=== PATIENT | female | born 1970 | race Caucasian/White ===

== ENCOUNTER → 2016-10-07 | Outpatient (CLI) | payer BC ==
[~2016-10-07] MED LIST: ALBU8.5H2 IH; EPIN0.3P3 IM; FAMO20TA5 PO; IBUP800T26 PO; PRD20T PO
--- OUTSIDE RECORDS SUMMARY | 2016-10-07 16:10 | XMS REPORT | Continuity of Care Document ---
Author Author [facility] Organization [facility] Address Unknown Phone Unavailable Allergies Active Description Code Type Severity Reaction Onset Reported/Identified Relationship to Patient Clinical Status Yes acetaminophen [id number] Drug Allergy Unknown N/A 05/20/2007 Yes codeine [id number] Drug Allergy Unknown N/A 05/20/2007 Yes hydromorphone [id number] Drug Allergy Unknown N/A 05/20/2007 Yes oxycodone [id number] Drug Allergy Unknown N/A 05/20/2007 Yes benzonatate [id number] Drug Allergy Severe N/A 06/12/2014 Medications Problems Date Dx Coded Attending Type Code Diagnosis Diagnosed By 06/12/2014 KAIR SHI Ot 786.05 SHORTNESS OF BREATH 06/12/2014 KARI SHI Ot 995.0 OTHER ANAPHYLACTIC REACTION 06/12/2014 KARI SHI Ot E945.4 ADV EFF ANTITUSSIVES 11/25/2015 MELITON BERUMEN MD Ot 611.89 OTHER SPECIFIED DISORDERS OF BREAST 11/25/2015 MELITON BERUMEN MD Ot V76.12 OTH SCREEN MAMMO-MALIGN NEOPLASM OF [place] 11/27/2015 MELITON BERUMEN MD Ot 611.89 OTHER SPECIFIED DISORDERS OF BREAST 11/27/2015 MELITON BERUMEN MD, Ot V76.12 OTH SCREEN MAMMO-MALIGN NEOPLASM OF [place] 12/14/2015 MELITON BERUMEN MD Ot 793.80 UNSPEC ABNORMAL MAMMOGRAM 12/14/2015 MELITON BERUMEN MD Ot 486 PNEUMONIA, ORGANISM NOS 02/02/2016 MELITON BERUMEN MD Ot 793.80 UNSPEC ABNORMAL MAMMOGRAM 02/02/2016 MELITON BERUMEN MD Ot 486 PNEUMONIA, ORGANISM NOS 05/07/2016 MELITON BERUMEN MD Ot 793.80 UNSPEC ABNORMAL MAMMOGRAM 05/07/2016 ATA MD, MELITON J Ot 486 PNEUMONIA, ORGANISM NOS 07/15/2016 MELITON BERUMEN MD Ot 793.80 UNSPEC ABNORMAL MAMMOGRAM 07/15/2016 MELITON BERUMEN MD Ot 486 PNEUMONIA, ORGANISM NOS 07/17/2016 MELITON BERUMEN MD Ot R10.84 GENERALIZED ABDOMINAL PAIN 07/17/2016 MELITON BERUMEN MD Ot R31.9 HEMATURIA, UNSPECIFIED 07/30/2016 MELITON BERUMEN MD Ot R10.84 GENERALIZED ABDOMINAL PAIN 07/30/2016 MELITON BERUMEN MD Ot R31.9 HEMATURIA, UNSPECIFIED Procedures Results Encounters ACCT No. Visit Date/Time Discharge Status Pt. Type Provider Facility Loc./Unit Complaint [id number] 06/12/2014 16:38:00 2013 20:31:00 DIS Emergency KARI SHI [facility] ER ALLERGIC REACTION [id number] 06/01/2014 11:50:00 2013 23:59:59 CLS Outpatient MELITON BERUMEN MD [facility] RAD CLINICAL PNEUMONIA [id number] 12/12/2013 07:49:00 2013 23:59:59 CLS Outpatient MELITON BERUMEN MD [facility] RAD ABNORMAL MAMMO [id number] 12/02/2013 07:05:00 2013 23:59:59 CLS Outpatient MELITON BERUMEN MD [facility] RAD [id number] 07/16/2016 08:07:00 ACT Outpatient MELITON BERUMEN MD [facility] RAD LT FLANK PAIN,HEMATURIA
--- NOTE | 2016-10-07 18:49 | Diagnostic Imaging Report ---
Transabdominal and transvaginal pelvic ultrasound. INDICATION: Abnormal uterine bleeding. FINDINGS: The uterus is 8.4 x 4.5 x 5 cm. The endometrial stripe is 1 cm in thickness. The myometrium is slightly heterogeneous with no discrete mass. The right ovary is 1.8 x 2.1 x 2.3 cm with arterial waveforms demonstrated. The left ovary is obscured by bowel gas. The urinary bladder appears unremarkable. IMPRESSION: The left ovary is not seen. The uterus and the right ovary demonstrate no significant abnormality. Dictated by: Dictated on workstation # [id number]
== END ==
LOC: RAD 15:21
PROVIDERS: ATTEND Family Medicine
DX: N93.9 Abnormal uterine and vaginal bleeding, unspecified (principal)
CPT/HCPCS: 76830; 76856